=== PATIENT | female | born 1960 | race Caucasian/White ===

== ENCOUNTER → 2016-12-14 | Outpatient (CLI) | payer BC ==
[~2016-12-14] MED LIST: CELEBREX200 MG PO; ESTRACE1 MG PO; PROZAC20 MG PO
== END | disposition short-term general hospital (02) ==
LOC: CLORTH 09:00
DX: M17.12 Unilateral primary osteoarthritis, left knee (principal)

== ENCOUNTER → 2017-01-11 | Outpatient (CLI) | payer BC | END | disposition short-term general hospital (02) | LOC: CLORTH 08:06 | DX: Z47.1 Aftercare following joint replacement surgery (principal); Z96.652 Presence of left artificial knee joint ==